=== PATIENT | female | born 1945 | race Caucasian/White ===

== ENCOUNTER → 2016-10-24 | Outpatient (CLI) | payer MEDICARE, OTHER ==
--- NOTE | 2016-10-24 15:12 | RADRPT ---
PROCEDURE: XR Pelvis and Hips. CLINICAL INDICATION: Pelvic pain. Bilateral hip pain. TECHNIQUE: Five views. Frontal pelvis. Frontal and lateral right hip. Frontal and lateral left hip. COMPARISON: No prior studies are available for comparison. FINDINGS: There is no fracture or dislocation. The soft tissues are normal. The hip articular surfaces are intact. There are degenerative changes of the lower lumbar spine. There is no lytic or blastic lesion. There is no radiopaque foreign body. IMPRESSION: 1. Unremarkable x-ray pelvis and bilateral hips. 2. Degenerative changes of the lower lumbar spine. RPTAT: QQ .Abraham Wolf MD, MD Date Time Electronically viewed and signed by .Abraham Wolf MD, on 10/24/2016 15:12 .R/
== END | disposition home or self-care (01) ==
LOC: HKI 13:50
PROVIDERS: ATTEND Orthopaedic Surgery
DX: M51.15 Intervertebral disc disorders with radiculopathy, thoracolumbar region (principal); M41.9 Scoliosis, unspecified; Z88.2 Allergy status to sulfonamides
CPT/HCPCS: 73523; G0463